=== PATIENT | male | born 2000 | race Caucasian/White ===

== ENCOUNTER 2023-06-01 06:33 | Day surgery (SDC) | payer OTHER ==
[~2023-06-01] VITALS: Ht 165.1 cm; Wt 60.0 kg
[2023-06-01] VITALS (217 sets, daily range): BP systolic 79–142; BP diastolic 30–95
[2023-06-01 08:12] LABS: BASO% 0.7 % (0-3); EOS% 1.1 % (0-8); HEMATOCRIT 42.1 % (39.0-50.0); HEMOGLOBIN 14.1 g/dl (14.0-18.0); LYMPH% 42.8 % (15-41); MEAN CELL VOLUME 87.3 fL CALC (80.0-100.0); MEAN CORPUSCULAR HGB 29.3 pG CALC (26.0-32.0); MEAN CORPUSCULAR HGB CONC 33.5 g/dL CAL (32.0-36.0); MONO% 8.1 % (2-13); NEUT# 2.09 thou/uL (1.82-7.42); NEUT% 47.3 % (42-76); RED BLOOD COUNT 4.82 mill/uL (4.70-6.10); RED CELL DISTRI WIDTH 11.9 % (11.5-15.5)
[2023-06-01 08:47] LABS: ALBUMIN 4.9 g/dL (3.2-5.0); ALKALINE PHOSPHATASE 87 u/l (38-126); ANION GAP 12 (6-22 (CALC)); BILIRUBIN, TOTAL 2.4 mg/dL (0.2-1.3); BUN 15 mg/dL (9-20); BUN/CREATININE RATIO 17 (12-20 (CALC)); CARBON DIOXIDE 30 mmol/l (22-30); CHLORIDE 103 mmol/l (95-108); CREATININE 0.9 mg/dL (0.7-1.3); GFR FOR AFR.AMER. > 60 ML/MIN (>=60 (CALC)); GFR OTHER RACES > 60 ML/MIN (>=60 (CALC)); POTASSIUM 3.7 mmol/l (3.5-5.1); SGOT/AST 30 u/l (17-59); SODIUM 141 mmol/l (137-146); TOTAL PROTEIN 8.1 g/dL (6.3-8.2)
[2023-06-01] MEDS ORDERED: NALTREXONE50 MG PO (14:31)
[2023-06-01] MEDS ORDERED: CLONIDINE0.1 MG PO (14:33)
[2023-06-01] MEDS ORDERED: KLONOPIN2 MG PO (14:35)
[2023-06-02 03:24] VITALS: BP 108/60
[2023-06-02 05:48] LABS: BASO% 0.2 % (0-3); LYMPH% 19.1 % (15-41); MEAN CELL VOLUME 89.3 fL CALC (80.0-100.0); MEAN CORPUSCULAR HGB 29.7 pG CALC (26.0-32.0); MEAN CORPUSCULAR HGB CONC 33.2 g/dL CAL (32.0-36.0); MONO% 3.6 % (2-13); NEUT# 3.19 thou/uL (1.82-7.42); NEUT% 77.1 % (42-76); RED BLOOD COUNT 3.91 mill/uL (4.70-6.10); RED CELL DISTRI WIDTH 12.1 % (11.5-15.5)
[2023-06-02 06:06] LABS: ALKALINE PHOSPHATASE 66 u/l (38-126); ANION GAP 12 (6-22 (CALC)); BILIRUBIN, TOTAL 1.7 mg/dL (0.2-1.3); BUN 10 mg/dL (9-20); BUN/CREATININE RATIO 12 (12-20 (CALC)); CARBON DIOXIDE 26 mmol/l (22-30); CHLORIDE 110 mmol/l (95-108); CREATININE 0.8 mg/dL (0.7-1.3); GFR FOR AFR.AMER. > 60 ML/MIN (>=60 (CALC)); GFR OTHER RACES > 60 ML/MIN (>=60 (CALC)); MAGNESIUM 2.2 mg/dL (1.6-2.3); POTASSIUM 3.9 mmol/l (3.5-5.1); SGOT/AST 23 u/l (17-59); SODIUM 144 mmol/l (137-146)
[2023-06-02 06:07] LABS: ALBUMIN 3.8 g/dL (3.2-5.0); TOTAL PROTEIN 6.3 g/dL (6.3-8.2)
[2023-06-02 06:08] LABS: HEMATOCRIT 34.9 % (39.0-50.0); HEMOGLOBIN 11.6 g/dl (14.0-18.0)
[2023-06-02 08:02] VITALS: BP 108/53
[2023-06-02 08:03] VITALS: BP 108/60
== END 2023-06-02 14:11 | disposition home or self-care (01) | DRG 897 ==
LOC: ANR 06:33 → MS2 06:33 → ANR 09:00
PROVIDERS: ATTEND Anesthesiology Critical Care Medicine
DX: F11.20 Opioid dependence, uncomplicated (principal)
CPT/HCPCS: J2060; J2354; J3475